=== PATIENT | male | born 2000 | race Caucasian/White ===

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

== ENCOUNTER 2018-03-01 12:13 | Emergency (ER) | payer OTHER ==
[2018-03-01 13:08] VITALS: BP 126/68
--- NOTE | 2018-03-01 13:12 | UC ---
Skin Complaint HPI - HPI Summary HPI Summary: 17 yo male presents with growth behind left ear lobe first noticed 3 days ago and getting progressively larger. Mildly TTP. Denies injury, bug bite, fever. - History of Current Complaint Chief Complaint: UCEar Time Seen by Provider: 03/01/18 13:11 Stated Complaint: SKIN CONCERN BEHIND LEFT EAR Hx Obtained From: Patient Onset/Duration: Gradual Onset Skin Exposure Onset/Duration: Days Ago Onset Severity: Mild Current Severity: Mild Pain Intensity: 3 Pain Scale Used: 0-10 Numeric - Allergy/Home Medications Allergies/Adverse Reactions: Allergies Allergy/AdvReac Type Severity Reaction Status Date / Time dust Allergy Runny Nose Uncoded 03/01/18 12:58 Home Medications: Home Medications Albuterol HFA INHALER* [Ventolin HFA Inhaler*] 2 puff INH Q4H PRN 03/01/18 [ History Confirmed 03/01/18] Fluticasone-Salmeterol 250-50* [Advair Diskus 250-50*] 2 puff INH BID 03/01/18 [ History Confirmed 03/01/18] PMH/Surg Hx/FS Hx/Imm Hx Respiratory History: Asthma - Surgical History Surgical History: Yes Surgery Procedure, Year, and Place: inguinal hernia repair as an - Family History Known Family History: Positive: Respiratory Disease - Social History Lives: With Family Alcohol Use: None Substance Use Type: None Smoking Status (MU): Never Smoked Tobacco Review of Systems All Other Systems Reviewed And Are Negative: Yes Constitutional: Positive: Negative Skin: Positive: Other - Abscess left earlobe Respiratory: Positive: Negative Cardiovascular: Positive: Negative Neurovascular: Positive: Negative Neurological: Positive: Negative Psychological: Positive: Negative Physical Exam - Summary Physical Exam Summary: GENERAL: NAD. WDWN. No pain distress. SKIN: Left ear: posterior skin fold near earlobe with 7mm length and 5mm depth superficial abscess. Mildly TTP. Mild active drainage with yellow purulent material. NECK: Supple. Nontender. No lymphadenopathy. CHEST: No accessory muscle use. Breathing comfortably and in no distress. CV: Pulses intact. Cap refill <2seconds NEURO: Alert. PSYCH: Age appropriate behavior. Triage Information Reviewed: Yes Vital Signs: Initial Vital Signs Temp 98.2 F 03/01/18 13:00 Pulse 89 03/01/18 13:00 Resp 18 03/01/18 13:00 BP 126/68 01/05/19 13:00 Pulse Ox 98 03/01/18 13:00 Vital Signs Reviewed: Yes Course/Dx - Course Course Of Treatment: The procedure was explained to the pt and all questions were answered. A time out was performed, witnessed, and signed. The area was cleansed with an alcohol pad. An 18G needle was used to yissel the inferior portion of the abscess and copious yellow purulent material was able to be expressed. Pt experienced good pain relief and tolerated well. Bandaged with telfa. Rx for keflex. - Diagnoses Provider Diagnosis: Abscess of left external ear Discharge - Sign-Out/Discharge Documenting (check all that apply): Patient Departure All imaging exams completed and their final reports reviewed: No Studies - Discharge Plan Condition: Stable Disposition: HOME Prescriptions: Cephalexin CAP* [Keflex CAP*] 500 mg PO BID #14 cap Patient Education Materials: Abscess (ED) Referrals: Bhargavi Valdivia MD [Primary Care Provider] - Additional Instructions: If you develop a fever, shortness of breath, chest pain, new or worsening symptoms - please call your PCP or go to the ED. - Billing Disposition and Condition Condition: STABLE Disposition: Home
== END 2018-03-01 13:28 | disposition home or self-care (01) ==
LOC: UCCORT 12:13
DX: H60.02 Abscess of left external ear (principal); J45.909 Unspecified asthma, uncomplicated
CPT/HCPCS: 10060; 69000; 99212; G0463